=== PATIENT | male | born 1970 | race African-American/Black ===

== ENCOUNTER 2018-05-18 06:04 | Emergency (ER) | payer OTHER ==
[~2018-05-18] VITALS: Ht 182.9 cm; Wt 65.8 kg
[2018-05-18] MEDS ORDERED: NOHOMEMEDICATIONS (06:10)
[2018-05-18 06:16] LABS: HEMOGLOBIN 15.9 gm/dL (14.0-18.0); MCH 32.9 pg (26.0-34.0); MCHC 33.7 g/dL (28.0-37.0); MCV 97.4 fL (80.0-100.0); PLATELET COUNT 251 thou/uL (150-400); RBC 4.83 mil/uL (4.50-6.00); RDW 13.1 % (10.5-14.5); WBC 5.3 thou/uL (4.0-11.0)
[2018-05-18 06:26] LABS: ANION GAP 9 mmol/L (7-16); BUN 16 mg/dL (7-18); CALCIUM 9.8 mg/dL (8.5-10.1); CHLORIDE 100 mmol/L (98-107); CO2 31 mmol/L (21-32); GLUCOSE 141 mg/dL (74-106); POTASSIUM 3.8 mmol/L (3.5-5.1); SODIUM 140 mmol/L (136-145)
[2018-05-18 06:35] LABS: TROPONIN-I <0.06 ng/mL (<0.06)
[2018-05-18] MEDS ORDERED: PROAIR HFA8.5 GM INH (07:29)
[2018-05-18] MEDS ORDERED: PREDNISONE 20 M20 M1 PO (07:29)
[2018-05-18 07:32] VITALS: BP 110/69
--- NOTE | 2018-05-18 08:13 | EKG ---
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 BYRD : 1970 Requested By: Elmer Hubbard Order Number: [id number] MD: rSavan Parker Measurements Intervals [place] Rate: 77 P: 74 [place]: 144 QRS: 83 QRSD: 116 T: 69 QT: 424 QTc: 480 Interpretive Statements Sinus rhythm Left ventricular hypertrophy Nonspecific T abnrm, anterolateral leads Borderline prolonged QT interval No previous ECG available for comparison Electronically Signed On 05-18-2018 8:13:32 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
[2018-05-18 08:32] LABS: ABSOLUTE NEUTROPHILS 1.5 thou/uL (1.4-8.2); PLATELET ESTIMATE NORMAL
== END 2018-05-18 07:43 | disposition home or self-care (01) ==
LOC: ER 06:04
PROVIDERS: Emergency Medicine
DX: J45.909 Unspecified asthma, uncomplicated (principal); F17.210 Nicotine dependence, cigarettes, uncomplicated

== ENCOUNTER 2018-06-05 04:17 | Emergency (ER) | payer OTHER ==
[~2018-06-05] VITALS: Ht 182.9 cm; Wt 68.0 kg
[~2018-06-05 04:17] MED LIST: NOHOMEMEDICATIONS; PREDNISONE 20 M20 M1 PO; PROAIR HFA8.5 GM INH
[2018-06-05] MEDS ORDERED: ALBUTEROL2.5 MG/31 INH (06:11)
[2018-06-05] MEDS ORDERED: VENTOLIN HFA 1818 GM INH (06:11)
[2018-06-05] MEDS ORDERED: PREDNISONE50 MG PO (06:11)
[2018-06-05 06:58] VITALS: BP 131/84
== END 2018-06-05 06:58 | disposition home or self-care (01) ==
LOC: ER 04:17
DX: J44.1 Chronic obstructive pulmonary disease with (acute) exacerbation (principal); Z87.891 Personal history of nicotine dependence

== ENCOUNTER 2018-07-11 00:48 | Emergency (ER) | payer OTHER ==
[~2018-07-11] VITALS: Ht 185.4 cm; Wt 63.5 kg
[~2018-07-11 00:48] MED LIST changes: +ALBUTEROL2.5 MG/31 INH; +PREDNISONE50 MG PO; +VENTOLIN HFA 1818 GM INH
[2018-07-11] MEDS ORDERED: PREDNISONE50 MG PO (02:20)
[2018-07-11] MEDS ORDERED: ALBUTEROL2.5 MG/31 INH (02:20)
[2018-07-11] MEDS ORDERED: IPRATROPIU0.2 MG/1 M INH (02:20)
[2018-07-11 03:26] VITALS: BP 131/83
--- NOTE | 2018-07-11 13:36 | EKG ---
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 : 1970 Requested By: Tiffani Valenzuela Order Number: [id number] MD: Sravan Parker Measurements Intervals [place] Rate: 81 P: 77 NM: 158 QRS: 76 QRSD: 92 T: 70 QT: 386 QTc: 448 Interpretive Statements Sinus rhythm Right atrial enlargement Compared to ECG 05/18/2018 06:12:15 No significant change was found Electronically Signed On 07-11-2018 13:36:50 CDT by Sravan Parker [email or web address] ��������������������������������������������� <ELECTRONICALLY SIGNED> ���������������������������������������� By: Sravan Parker MD, [facility] ��������������������������������������������� 07/11/18 [id number] [id number] Sravan Parker MD, FACC /EPI
== END 2018-07-11 03:26 | disposition home or self-care (01) ==
LOC: ER 00:48
DX: J44.9 Chronic obstructive pulmonary disease, unspecified (principal); Z87.891 Personal history of nicotine dependence